=== PATIENT | male | born 1975 ===

== ENCOUNTER 2017-09-12 20:50 | Inpatient (IN) ==
[2017-09-13] MEDS ORDERED: hydrALAZINE 20 MG/1 ML VIAL IV PRN (00:25)
[2017-09-13] MEDS ORDERED: DEXTROSE 50% 25 GM/50 ML VIAL IV PRN (00:33)
[2017-09-13] MEDS ORDERED: GLUCAGON 1 MG VIAL IM PRN (00:33)
[2017-09-13] MEDS ORDERED: ACETAMINOPHEN 325 MG TABLET PO PRN (00:33)
[2017-09-13] MEDS ORDERED: MORPHINE 2 MG/1 ML SYRINGE IV PRN (00:33)
[2017-09-13] MEDS: amLODIPine 10 MG TABLET PO SCH ×2 (01:46→10:00)
[2017-09-13] MEDS: ENOXAPARIN 40 MG/0.4 ML SYRINGE SUBCUT SCH (06:56)
[2017-09-13 07:22] LABS: Basophils % 0.3 % (0.0-0.8); Eosinophils # 0.2 10*3/uL (0.0-0.87); Eosinophils % 1.8 % (0.00-10.9); Hematocrit 36.2 VOL% (42.0-52.0); Hemoglobin 13.2 GM/DL (14.0-18.0); Immature Granulocytes % 0.4 %; Immature Granulocytes Absolute 0.04 #; Lymphocytes # 2.6 10*3/uL (1.4-4.0); Lymphocytes % 26.8 % (21.2-54.2); Mean Corpuscular HGB Conc 36.5 GM/DL (32-36); Mean Corpuscular Hemoglobin 30 PG (27-34); Mean Corpuscular Volume 81.5 FL (87-102); Mean Platelet Volume 10.2 FL (9.6-12.0); Monocytes # 0.7 10*3/uL (0.11-0.8); Neutrophils # 6.1 10*3/uL (1.4-7.4); Neutrophils % 63.7 % (38.7-73.9); Platelet Count 246 T/CUMM (130-400); Red Blood Count 4.44 MC/CUMM (3.8-5.5); White Blood Count 9.6 T/CUMM (4-12)
[2017-09-13 08:01] LABS: Albumin 3.3 G/DL (3.4-5.0); Bilirubin,Total 1.3 MG/DL (0.2-1.0); Calcium 8.7 MG/DL (8.5-10.1); Osmolality,Calculated 285.4 MOS/KG (273-304); Thyroid Stimulating Hormone 4.68 uIU/ml (0.358-3.74); Total Protein 6.8 G/DL (6.4-8.3)
[2017-09-13] MEDS: INSULIN LISPRO 100 UNIT/ML SUBCUT SCH ×4 (10:00→21:23)
[2017-09-13] MEDS: PANTOPRAZOLE 40 MG TABLET PO SCH (10:00)
[2017-09-13] MEDS: ONDANSETRON 4 MG/2 ML VIAL IV PRN ×2 (15:45→21:24)
[2017-09-14] MEDS: ENOXAPARIN 40 MG/0.4 ML SYRINGE SUBCUT SCH (07:13)
[2017-09-14 07:40] LABS: Calcium 8.8 MG/DL (8.5-10.1); Osmolality,Calculated 288.4 MOS/KG (273-304); Potassium 4.4 MMOL/L (3.5-5.1)
[2017-09-14] MEDS: INSULIN LISPRO 100 UNIT/ML SUBCUT SCH ×4 (08:18→20:39)
[2017-09-14] MEDS: amLODIPine 10 MG TABLET PO SCH (08:19)
[2017-09-14] MEDS: PANTOPRAZOLE 40 MG TABLET PO SCH (08:19)
[2017-09-14] MEDS: ONDANSETRON 4 MG/2 ML VIAL IV PRN (09:03)
[2017-09-15] MEDS: ENOXAPARIN 40 MG/0.4 ML SYRINGE SUBCUT SCH (07:03)
[2017-09-15] MEDS: amLODIPine 10 MG TABLET PO SCH (09:08)
[2017-09-15] MEDS: PANTOPRAZOLE 40 MG TABLET PO SCH (09:08)
[2017-09-15] MEDS: INSULIN LISPRO 100 UNIT/ML SUBCUT SCH ×5 (09:08→21:45)
[2017-09-15 13:03] LABS: Calcium 8.8 MG/DL (8.5-10.1); Osmolality,Calculated 290.5 MOS/KG (273-304); Potassium 4.9 MMOL/L (3.5-5.1)
[2017-09-15] MEDS ORDERED: INSULIN GLARGINE 100 UNIT/ML SUBCUT SCH (21:00)
[2017-09-16 06:26] LABS: Calcium 8.5 MG/DL (8.5-10.1)
[2017-09-16 08:16] VITALS: BP 131/81
[2017-09-16] MEDS: amLODIPine 10 MG TABLET PO SCH (09:22)
[2017-09-16] MEDS: INSULIN LISPRO 100 UNIT/ML SUBCUT SCH ×2 (09:22)
[2017-09-16] MEDS: ENOXAPARIN 40 MG/0.4 ML SYRINGE SUBCUT SCH (09:22)
[2017-09-16] MEDS: PANTOPRAZOLE 40 MG TABLET PO SCH (09:22)
== END 2017-09-16 11:35 | disposition home or self-care (01) | DRG 199 ==
LOC: INTOOBSV 22:29 → SUATTDRO 22:29 → N.5E 22:29
PROVIDERS: ADMIT Internal Medicine; ATTEND Hospitalist